=== PATIENT | male | born 1985 | race Caucasian/White ===

== ENCOUNTER 2019-08-06 18:24 | Emergency (ER) | payer OTHER, SELFPAY ==
[2019-08-06 18:45] VITALS: BP 158/105; PULSE 82; RESP 12; TEMP 36.2; O2SAT 100; BMI 31.6
--- NOTE | 2019-08-06 22:26 | ED_ITS ---
HPI - Extremity Injury (Lower) General Chief Complaint: Extremity Injury, Lower Stated Complaint: right leg pain, swelling Time Seen by Provider: 08/06/19 22:26 Source: patient Mode of arrival: Ambulatory Limitations: no limitations History of Present Illness HPI Narrative: The patient awoke with pain in the right popliteal fossa this morning, started at 5:00 a.m.. He has been having similar symptoms intermittent ly for 1 year. He can recall no specific injury to the knee. He did play a lot of sports when he was younger. The pain is in the popliteal fossa of the right knee. He applied a knee sleeve today after the pain occurred. By the time arrival here he is asymptomatic. There is no low back pain, hip pain, or anterior knee pain. There is no pain in the calf from a of the right leg. There is no swelling to the leg. He is currently asymptomatic. He has no prior history of surgery to lower extremities. He is on no prescription medications, he has no defined medical issues. Related Data Allergies Allergy/AdvReac Type Severity Reaction Status Date / Time No Known Drug Allergies Allergy Verified 08/06/19 18:49 Review of Systems Constitutional Constitutional: Denies chills, Denies fatigue and Denies fever(s) Musculoskeletal Musculoskeletal: Reports as per HPI, Denies deformity, Reports joint swelling, Denies limited range of motion, Denies muscle weakness, Denies numbness and Denies radiating pain into limb Integumentary/Breasts Skin/Breast: Denies rash and Denies skin swelling Neurologic Neurologic: Denies numbness Endocrine Endocrine: Denies fatigue Patient History Medical History No chronic problems (Acute) Surgical History No significant past surgical history (Acute) Social History Smoking Status: Never smoker Smoking Status: Never smoker alcohol intake frequency: 3 or more drinks per day Alcohol type: beer Substance Use Type: marijuana Exam Initial Vital Signs Initial Vital Signs: Vital Signs Temperature 97.1 F L 08/06/19 18:45 Pulse Rate 82 08/06/19 18:45 Respiratory Rate 12 08/06/19 18:45 Blood Pressure 158/105 H 08/06/19 18:45 Pulse Oximetry 100 08/06/19 18:45 Const General: cooperative and well developed Nutritional Appearance: well nourished Skin General: no rashes or lesions noted Neuro General: alert, oriented x3, gait normal and no focal motor deficits Extrem Other: He has no tenderness in his right hip, or thigh. He has no tenderness to the right knee. He has full range of motion of the right knee. His issue is recurring pain in the right popliteal fossa. There is no swelling or deformity to the popliteal fossa at this time. He has no calf tenderness or swelling. His right dorsalis pedis pulse intact. 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 The exam is currently benign. We discussed possibly perform an ultrasound the right leg, but he is currently asymptomatic. The conservative treatment is the knee brace that he is using. He has agreed to use the brace, I gave contact information for the local orthopedics group for follow-up if he chooses. Vital Signs Vital signs: Vital Signs - 8 hr 08/06/19 18:45 Temperature 97.1 F L Pulse Rate 82 Respiratory Rate 12 Blood Pressure 158/105 H Pulse Oximetry 100 Discharge Plan Departure Patient Disposition: Home Clinical Impression: Knee pain, right Qualifiers: Chronicity: acute Qualified Code(s): M25.561 - Pain in right knee Cee's cyst of knee Qualifiers: Laterality: right Qualified Code(s): M71.21 - Synovial cyst of popliteal space [Cee], right knee Discharge Date/Time: 08/06/19 22:55 Instructions: Bakers Cyst Activity Restrictions/Additional Instructions: I would recommend using a knee sleeve for interactive, as you did today. If symptoms persist, follow-up with an orthopedic surgeon. I will give you contact information for local orthopedic surgeon, Dr. Maria. Referrals: Laith Maria MD [Physician] -
--- NOTE | 2019-08-06 22:49 | PC.NURSE ---
Patient reports he wore a copper compression wrap on right knee after experiencing a different sharp pain in left knee. He has been dealing with some intermittent left knee pain with bending and certain movements for some time but today was different in nature
[2019-08-06 22:54] VITALS: BP 148/92; PULSE 89; RESP 12; O2SAT 98
== END 2019-08-06 22:55 | disposition home or self-care (01) ==
PROVIDERS: Emergency Provider Emergency Medicine
DX: M71.21 Synovial cyst of popliteal space [Baker], right knee (principal)
CPT/HCPCS: 99281